=== PATIENT | female | born 1985 | race Caucasian/White ===

== ENCOUNTER 2017-10-06 21:10 | Emergency (ER) | payer OTHER ==
--- NOTE | 2017-10-06 21:30 | EDPHY ---
H & P Time Seen by Provider: 10/06/17 21:22 HPI/ROS: CHIEF COMPLAINT: Right thumb pain post hockey HISTORY OF PRESENT ILLNESS: 32-year-old female [id number] arrives via private vehicle complaining of acute right thenar eminence pain after she was playing hockey and the puck impacted her right thenar eminence during a slap shot. Occurred shortly prior to arrival. She has reproducible pain with palpation she and range of motion. Ecchymosis present. No paresthesia. No other injury PHYSICAL EXAM (Prior to examination, patient consented to physical exam, hands were washed and my usual and customary physical exam procedures followed) 1) GENERAL: Well-developed, well-nourished, alert and oriented. Appears to be in no acute distress. 2) HEAD: Normocephalic 3) HEENT: Pupils equal, round, reactive to light bilaterally. 4) LUNGS: Breathing comfortably. 5) MUSCULOSKELETAL: Right hand: Ecchymosis and tenderness to the right thenar eminence. Soft compartments. Ecchymosis at same location. Patient unwilling or unable to perform opposition secondary to pain. Patient unwilling or unable to perform abduction abduction flexion extension secondary to pain 6) SKIN: Intact 7) VASCULAR: pulses and cap refill present are brisk 8) NEUROLOGIC: Radial, ulnar, median nerve function intact with no deficits appreciated on exam DIFFERENTIAL DIAGNOSIS: in no particular order including but not limited to fracture, sprain, compartment syndrome Procedure: Splint Initially a Velcro thumb spica splint was placed on the patient however this caused discomfort to the patient. Subsequently an Orthoglass thumb spica splint was built. This was was applied by ER sterile processing technician. After application of the splint I returned and re-examined the patient. The splint was adequately immobilizing the joint and distal to the splint the patient's circulation and sensation were intact. Patient shows no signs of compartment syndrome. Was given orthopedic precautions. Smoking Status: Never smoked Constitutional: Initial Vital Signs Temperature (C) 36.8 C 10/06/17 21:14 Heart Rate 92 10/06/17 21:14 Respiratory Rate 16 06/17/18 21:14 Blood Pressure 115/75 10/06/17 21:14 O2 Sat (%) 97 10/06/17 21:14 O2 Delivery Mode Room Air Allergies/Adverse Reactions: Sulfa (Sulfonamide Antibiotics) Allergy (Verified 10/06/17 21:15) paba Allergy (Uncoded 10/06/17 21:15) Home Medications: Medication Instructions Recorded NK [No Known Home Meds] 10/06/17 MDM/Departure - MDM Imaging Results: Imaging Impressions Hand X-Ray 10/06/17 21:24 Impression: Intra-articular fracture at the base of the proximal phalanx of the right thumb as detailed above. Images reviewed myself Medications Given: Discontinued Medications Hydrocodone Bitart/Acetaminophen ([place] 5/325mg Prepack#6) 1 btl TAKEHOME EDNOW ONE Stop: 10/06/17 21:32 Last Admin: 10/06/17 21:49 Dose: 1 btl Ibuprofen (Motrin) 800 mg PO EDNOW ONE Stop: 10/06/17 21:46 Last Admin: 10/06/17 21:48 Dose: 800 mg ED Course/Re-evaluation: Patient has been informed that non osseous injury is not ruled out. Reviewed her imaging results with her. Of particular interest she has an intra- articular component of her fracture. She has been informed of the risks of posttraumatic arthritis importance of follow-up with Hand surgery and immobilization. I am unable to fully assess opposition abduction abduction flexion extension secondary to pain. I have recommended close follow-up with Hand surgery, she has been splinted in a Velcro thumb spica. Doubt compartment syndrome. She feels comfortable being discharged. I saw this patient independently based on established practice protocols. Care of patient under supervision of secondary supervising physician Dr Woody . - Depart Disposition: Home, Routine, Self-Care Clinical Impression: Activity, ice hockey Fracture of thumb Qualifiers: Encounter type: initial encounter Fracture type: closed Phalanx: proximal Fracture alignment: nondisplaced Laterality: right Qualified Code(s): S62.514A - Nondisplaced fracture of proximal phalanx of right thumb, initial encounter for closed fracture Condition: Good Instructions: Hydrocodone/Acetaminophen (By mouth), Finger Fracture (ED) Additional Instructions: Return to the ER immediately if you experience discoloration, have worsening pain, numbness, tingling, or any other symptoms that concern you. If you received x-rays in the emergency department today, be advised, that ligamentous , tendon, muscular, and other non-bony injury cannot be fully ruled out. Try to keep your affected extremity elevated above the level of your chest, and keep cold packs on the affected area, for the next 48 hours. Referrals: Devonte Adhikari MD [Medical Doctor] - 2-3 days, call for appt.
[2017-10-06] MEDS ORDERED: HYDROCOD/APAP 5/325 PREPACK#6 BTL TAKEHOME ONE (21:31)
[2017-10-06] MEDS ORDERED: IBUPROFEN 800 MG TAB PO ONE (21:45)
[2017-10-06 22:01] VITALS: BP 118/80
== END 2017-10-06 22:01 | disposition home or self-care (01) ==
DX: S62.514A Nondisplaced fracture of proximal phalanx of right thumb, initial encounter for closed fracture (principal); W21.220A Struck by ice hockey puck, initial encounter; Y99.8 Other external cause status; Y93.22 Activity, ice hockey